=== PATIENT | male | born 1985 | race Caucasian/White ===

== ENCOUNTER 2018-03-23 03:44 | Emergency (ER) | payer OTHER ==
[~2018-03-23] VITALS: Ht 193 cm; Wt 147.4 kg
[~2018-03-23 03:44] MED LIST: ACEDIPPM PO; ASPI81CH; ASPI81CH PO; ATEN25 PO; ATEN50 PO; ATOR20 PO; Benadryl 50 mg50 MG PO; CEPH500 PO; CIPR.3TO OS; CIPRSO OS; CLOP75 PO; CODACE30 PO; CYCL10 PO; DIPH50 PO; EXC; HYDACE10 PO; HYDACE5 PO; HYDACE7.5 PO; HYDCHL25 PO; IBUP600 PO; IBUP800 PO; LEVFLO500 PO; LISI20 PO; META800 PO; METO25ER PO; METPRE4DP PO; NAPR500 PO; OXYACE5T PO; PENVK500 PO; PRED20 PO; PROACE100 PO; RXCYCL10 PO; RXERYTOPTH OD; RXHYDACE PO; RXOXYACE PO; RXPENVK250 PO; RXPROACE PO; SULTRIDS PO; TYLENO; ZESTORETIC 20-121 E1 PO; [UNRECOGNIZED DRUG - REMARK]
[2018-03-23] MEDS ORDERED: IBUP800 PO (04:31)
== END 2018-03-23 04:40 | disposition home or self-care (01) ==
LOC: ER 03:44
DX: M25.562 Pain in left knee (principal); I10 Essential (primary) hypertension; Z79.899 Other long term (current) drug therapy; Z87.891 Personal history of nicotine dependence
CPT/HCPCS: 99282

== ENCOUNTER 2022-01-28 08:58 | Emergency (ER) | payer BC ==
[~2022-01-28] VITALS: Ht 193 cm; Wt 127.5 kg
[~2022-01-28 08:58] MED LIST changes: +ALPR.5 PO; +ZESTORETIC 20-1 EAC1 PO
[2022-01-28 09:41] LABS: BASOPHILS ABSOLUTE AUTO 0.02 K/mm3 (0.00-0.23); BASOPHILS PERCENT AUTO 0 % (0-2); EOSINOPHILS ABSOLUTE AUTO 0.04 K/mm3 (0.00-0.68); EOSINOPHILS PERCENT AUTO 1 % (0-6); Hematocrit 48.4 % (37.0-53.0); Hemoglobin 16.5 g/dL (13.5-17.5); IMMATURE GRAN ABSOLUTE AUTO 0.01 K/mm3 (0.00-0.10); IMMATURE GRAN PERCENT AUTO 0 % (0-1); LYMPHOCYTES ABSOLUTE AUTO 1.52 K/mm3 (0.84-5.20); LYMPHOCYTES PERCENT AUTO 30 % (21-46); MONOCYTES PERCENT AUTO 10 % (4-13); Mean Corpuscular HGB 29.8 pg (26.0-34.0); Mean Corpuscular HGB Conc 34.1 g/dL (31.5-36.5); Mean Corpuscular Volume 88 fL (80-100); Mean Platelet Volume 10.2 fL (9.1-12.4); NEUTROPHILS ABSOLUTE AUTO 2.98 K/mm3 (1.96-9.15); NEUTROPHILS PERCENT AUTO 59 % (41-73); Platelet Count 255 K/mm3 (150-400); RDW Coefficient Variation 11.5 % (11.7-14.2); RDW Standard Deviation 36.8 fL (35.1-46.3); Red Blood Cell Count 5.53 M/mm3 (4.30-5.90); White Blood Cell Count 5.07 K/mm3 (4.00-11.30)
[2022-01-28 09:44] LABS: Alanine Aminotransfer (ALT/SGP 74 U/L (12-78); Albumin, Blood 4.5 g/dL (3.4-5.0); Albumin/Globulin Ratio 1.3 (0.8-1.8); Alk Phos 73 U/L (50-136); Anion Gap 5 mmol/L (6-16); Aspartate Aminotrans (AST/SGOT 34 U/L (12-37); Bilirubin, Total 0.6 mg/dL (0.1-1.0); Blood Urea Nitrogen 18 mg/dL (8-24); CO2, Blood 28 mmol/L (21-32); Calcium, Blood 9.1 mg/dL (8.5-10.1); Chloride, Blood 104 mmol/L (98-108); Creatinine, Blood 0.95 mg/dL (0.60-1.20); Globulin, Blood 3.4 g/dL (2.2-4.0); Glomerular Filtration Rate >60 (60-); Glucose, Blood 109 mg/dL (70-99); Potassium, Blood 4.1 mmol/L (3.5-5.5); Sodium, Blood 137 mmol/L (136-145); Total Protein, Blood 7.9 g/dL (6.4-8.2)
== END 2022-01-28 12:39 | disposition home or self-care (01) ==
LOC: ER 08:58
PROVIDERS: Student in an Organized Health Care Education/Training Program
DX: R00.1 Bradycardia, unspecified (principal); R07.2 Precordial pain; I10 Essential (primary) hypertension; K21.9 Gastro-esophageal reflux disease without esophagitis; Z79.899 Other long term (current) drug therapy; Z87.891 Personal history of nicotine dependence
CPT/HCPCS: 36415; 71046; 80053; 84484; 85025; 93005; 93010; 99284-25